=== PATIENT | male | born 1975 | race Caucasian/White ===

== ENCOUNTER 2017-08-11 13:02 | Emergency (ER) | payer BC ==
[~2017-08-11] VITALS: Ht 182.9 cm; Wt 130.2 kg
[~2017-08-11 13:02] MED LIST: COMBIVENT IN
[2017-08-11] MEDS ORDERED: MEDDOSEPAK PO (14:01)
[2017-08-11] MEDS ORDERED: TORADOL PO (14:01)
[2017-08-11 14:17] VITALS: BP 169/88
== END 2017-08-11 14:18 | disposition home or self-care (01) | DRG 93 ==
LOC: ED 13:02
DX: G89.29 Other chronic pain (principal); M54.5 Low back pain; Z98.890 Other specified postprocedural states

== ENCOUNTER 2020-10-11 11:59 | Emergency (ER) | payer OTHER, BC ==
[~2020-10-11 11:59] MED LIST changes: +MEDDOSEPAK PO; +TORADOL PO
[2020-10-11] MEDS ORDERED: METHOCARBAMOL500 MG PO (12:28)
[2020-10-11] MEDS ORDERED: DEPO-TESTOS100 MG/ML IM (12:29)
[2020-10-11] MEDS ORDERED: VIAGRA100 MG PO (12:30)
[2020-10-11 12:45] VITALS: BP 142/87
== END 2020-10-11 12:45 | disposition home or self-care (01) | DRG 552 ==
LOC: ED 11:59
DX: M54.9 Dorsalgia, unspecified (principal); G89.29 Other chronic pain; V43.52XA Car driver injured in collision with other type car in traffic accident, initial encounter

== ENCOUNTER 2022-03-14 06:10 | Emergency (ER) | payer BC ==
[~2022-03-14] VITALS: Ht 182.9 cm; Wt 134.5 kg
[2022-03-14] VITALS (18 sets, daily range): BP systolic 126–154; BP diastolic 73–95
[~2022-03-14 06:10] MED LIST changes: +DEPO-TESTOS100 MG/ML IM; +METHOCARBAMOL500 MG PO; +VIAGRA100 MG PO
[2022-03-14 06:40] LABS: HEMATOCRIT 50.2 % (39.0-50.0); HEMOGLOBIN 16.7 g/dl (14.0-18.0); IMMATURE GRANULOCYTES 0.3 % (0.0-5.0); MEAN CORPUSCULAR HGB 29.6 pG CALC (26.0-32.0); MEAN CORPUSCULAR HGB CONC 33.3 g/dL CAL (32.0-36.0); NEUT# 4.34 thou/uL (1.82-7.42); RED BLOOD COUNT 5.64 mill/uL (4.70-6.10); RED CELL DISTRI WIDTH 12.3 % (11.5-15.5)
[2022-03-14] MEDS ORDERED: LOSARTAN POTASS25 MG PO (06:42)
[2022-03-14 06:55] LABS: ALBUMIN 4.7 g/dL (3.2-5.0); ALKALINE PHOSPHATASE 72 u/l (38-126); ANION GAP 15 (6-22 (CALC)); BILIRUBIN, TOTAL 0.5 mg/dL (0.0-1.4); BUN 19 mg/dL (9-20); BUN/CREATININE RATIO 22 (12-20 (CALC)); CARBON DIOXIDE 26 mmol/l (22-30); CHLORIDE 102 mmol/l (95-108); CREATININE 0.9 mg/dL (0.7-1.3); D-DIMER 0.27 mg/L (0.19-0.60); GFR FOR AFR.AMER. > 60 ML/MIN (>=60 (CALC)); GFR OTHER RACES > 60 ML/MIN (>=60 (CALC)); LIPASE 105 u/l (23-300); POTASSIUM 4.2 mmol/l (3.5-5.1); SGOT/AST 21 u/l (17-59); SODIUM 139 mmol/l (137-146); TOTAL PROTEIN 7.8 g/dL (6.3-8.2)
[2022-03-14 07:00] LABS: ACT PARTIAL THROMBO TIME 25.6 SECONDS (20.0-32.5); PROTHROMBIN TIME 9.7 SECONDS (9.0-12.5)
[2022-03-14 07:54] LABS: MYOGLOBIN 65 ng/mL (0 - 121)
== END 2022-03-14 10:35 | disposition home or self-care (01) | DRG 313 ==
LOC: ED 06:10
PROVIDERS: Family Medicine
DX: R07.9 Chest pain, unspecified (principal)